=== PATIENT | male | born 1985 | race Caucasian/White ===

== ENCOUNTER 2020-06-07 16:22 | Emergency (ER) | payer MEDICAID, SELFPAY ==
[2020-06-07 16:30] VITALS: BP 155/106; PULSE 109; RESP 16; TEMP 36.8; O2SAT 98
--- NOTE | 2020-06-07 16:51 | ED.LOWEXIN ---
HPI - Extremity Injury (Lower) General Chief Complaint: Extremity Injury, Lower Stated Complaint: Extremity injury,lower Time Seen by Provider: 06/07/20 16:37 Source: patient and RN notes reviewed Mode of arrival: ambulatory Limitations: no limitations History of Present Illness HPI Narrative: Patient presents today complaining of a piece of glass to the bottom of his left great toe. He stepped on a piece of a mirror 4 to 5 days ago. He has attempted removal on his own and has placed a peroxide soaked baby wipe on the bottom of his foot prior to arrival. He is not UTD on his tetanus vaccine. complaint: foot injury Related Data Home Medications Medication Instructions Recorded Confirmed sertraline [Zoloft] 100 mg PO DAILY 06/07/20 06/07/20 Allergies Allergy/AdvReac Type Severity Reaction Status Date / Time No Known Allergies Allergy Verified 06/07/20 16:39 Review of Systems Review of Systems: Narrative: CONSTITUTIONAL: Denies body aches, fever, chills, or sweats. EYES: Denies visual changes, redness, or discharge. ENT: Denies rhinorrhea, congestion, sore throat, or otalgia. CARDIOVASCULAR: Denies chest pain, palpitations, or edema. RESPIRATORY: Denies cough or dyspnea. GASTROINTESTINAL: Denies abdominal pain, nausea, vomiting, or diarrhea. GENITOURINARY: Denies dysuria or hematuria. SKIN: Denies rash, itching. + Foreign body to the bottom of the left great toe MUSCULOSKELETAL: Denies back pain, joint pain, or myalgia. NEUROLOGIC: Denies headache, numbness, tingling, or weakness. PSYCH: Denies depression or anxiety. PMFSH Comments At time of signature, I have reviewed and agree with nursing past medical, surgical, social and family history unless otherwise noted. Please see nursing chart for further information. There is no relevant family history pertinent to the presenting complaint Exam Narrative: Exam Narrative: GENERAL: Well-appearing, well-nourished, and in no acute distress. HEAD: Normocephalic, atraumatic. EYES: EOMI. No redness or drainage. Conjunctivae normal. ENT: Mucous membranes pink and moist. NECK: Normal AROM. CHEST: No respiratory distress. EXTREMITIES: Normal range of motion. No edema. SKIN: Warm, dry, no rash. Capillary refill normal. Normal skin turgor. Left great toe is erythematous and mildly edematous. 2 mm circular area to the plantar aspect of the toe at the interphalangeal joint, that is overgrown with a layer of skin and is tender to palpation. NEURO: No focal deficits. Alert and oriented x3. Gait steady. PSYCH: Normal affect. No signs of depression or anxiety. Course Course Emergency Course: Patient refuses tetanus vaccine after it was ordered. Vital Signs Vital signs: Vital Signs Temperature 98.3 F 06/07/20 16:30 Pulse Rate 109 H 06/07/20 16:30 Respiratory Rate 16 06/07/20 16:30 Blood Pressure 155/106 H 06/07/20 16:30 Pulse Oximetry 98 06/07/20 16:30 Temperature 98.3 F 06/07/20 16:30 Pulse Rate 109 H 06/07/20 16:30 Respiratory Rate 16 06/07/20 16:30 Blood Pressure 155/106 H 06/07/20 16:30 Pulse Oximetry 98 06/07/20 16:30 Reviewed. Pt has been instructed to follow up with his PCP regarding his elevated blood pressure today. Procedures Foreign Body Removal Foreign Body #1: Foreign Body Removal Date: 06/07/20 Foreign Body Removal Time: 16:55 Time Out Performed: yes Site: left and foot Description of foreign body: other (Glass) Sedation/Analgesia: none Confirmed by:: patient report Complications: pain Neurovascular: normal distal pulse, normal capillary fill and distal light touch sensation intact Foreign Body Removal Narrative: Removed healed over skin with tip of 18g needle and forceps, then patient soaked his foot in hydrogen peroxide. I attempted a manual removal/expression of FB but was unsuccessful. Area was dressed. Will treat with abx with instructions to see
== END 2020-06-07 17:23 | disposition home or self-care (01) ==
PROVIDERS: Emergency Provider Nurse Practitioner
DX: S91.142A Puncture wound with foreign body of left great toe without damage to nail, initial encounter (principal); L03.032 Cellulitis of left toe; W25.XXXA Contact with sharp glass, initial encounter; F32.9 Major depressive disorder, single episode, unspecified
CPT/HCPCS: 99213; G0463